=== PATIENT | male | born 1975 | race Caucasian/White ===

== ENCOUNTER 2020-05-08 16:44 | Emergency (ER) | payer BC, SELFPAY ==
[2020-05-08] VITALS (9 sets, daily range): BP systolic 140–177; BP diastolic 68–99; PULSE 87–98; RESP 14–20; TEMP 36.7; O2SAT 94–100; BMI 33.0
--- NOTE | 2020-05-08 17:11 | CTR_ITS ---
PROCEDURE INFORMATION: Exam: CT Abdomen And Pelvis Without Contrast Exam date and time: 05/08/2020 5:14 PM Age: 44 years old Clinical indication: Abdominal pain; Flank; Left; Additional info: Left flank pain. History of kidney stones. Most severe yet TECHNIQUE: Imaging protocol: Computed tomography of the abdomen and pelvis without contrast. Radiation optimization: All CT scans at this facility use at least one of these dose optimization techniques: automated exposure control; mA and/or kV adjustment per patient size (includes targeted exams where dose is matched to clinical indication); or iterative reconstruction. COMPARISON: CT Abdomen/Pelvis Renal [id number] 11/18/2015 5:05 PM RADIATION DOSE METRICS: Total DLP (mGy-cm): 2.46 FINDINGS: Liver: Normal. No mass. Gallbladder and bile ducts: Normal. No calcified stones. No ductal dilation. Pancreas: Normal. No ductal dilation. Spleen: Normal. No splenomegaly. Adrenals: Small benign calcification in the right adrenal gland. The left gland is normal. Kidneys and ureters: 4 mm calculus at the left ureterovesical junction with mild left hydronephrosis and perinephric stranding. Additional tiny inferior left renal calculi. The right kidney is normal. Stomach and bowel: Chronic submucosal fatty deposition in the transverse and descending colon. Mild fecalization of the distal small bowel, likely related to delayed transit. Appendix: The appendix is normal. Intraperitoneal space: Unremarkable. No free air. No significant fluid collection. Vasculature: Unremarkable. No abdominal aortic aneurysm. Lymph nodes: Unremarkable. No enlarged lymph nodes. Urinary bladder: Mild wall thickening in the urinary bladder which is decompressed. Reproductive: Unremarkable as visualized. Bones/joints: Unremarkable. No acute fracture. Soft tissues: Fat containing left inguinal hernia. CT/CT kidney stone [id number] IMPRESSION: 1. 4 mm calculus at the left ureterovesical junction causing mild hydronephrosis. 2. Mild wall thickening of the urinary bladder may relate to decompression. Cystitis or trabeculation is not excluded. Radiation Dose CTDIVOL = (mGy): DLP = 2062.46 (mGy-cm)
--- NOTE | 2020-05-08 17:14 | ED_ITS ---
HPI - Abdominal Pain General: Chief Complaint: Abdominal Pain Stated Complaint: FLANK PAIN Time Seen by Provider: 05/08/20 16:54 Source: patient Mode of arrival: ambulatory Limitations: no limitations History of Present Illness: MD elicited complaint: flank pain Pertinent past history: kidney stones Onset (ago): hour(s) (2) Pain Consistency: constant Location: L flank Severity: severe Quality: stabbing Radiation: none Migration to: no migration Exacerbating factors: nothing Relieving factors: nothing Associated Symptoms: Reports nausea; Denies anorexia, belching, bloating, change in bowel habits, change in stool character, chills, coffee ground emesis, constipation, GI cramping, diarrhea, dyspepsia, dysuria, excessive flatus, fever(s), heartburn, hematochezia, hematuria, hematemesis, fecal incontinence, loose stools, melena, poor appetite, syncope and vomiting Review of Systems General: Reports: 10 or more systems reviewed and unremarkable except in HPI and below Const: Denies: fever(s) or chills Eyes: Denies: change in vision or blurry vision ENMT: Denies: throat pain, enlarged tonsils, odynophagia, hoarseness, mouth pain or swelling of lips/tongue Card: Denies: syncope Resp: Denies: dyspnea, productive cough or non-productive cough GI: Reports: nausea; Denies: vomiting, hematemesis, coffee ground emesis, heartburn, diarrhea, constipation, bloating, GI cramping, belching, excessive flatus, fecal incontinence, change in bowel habits, change in stool character, hematochezia or melena : Denies: dysuria or hematuria Musc: Denies: neck pain, back pain or extremity swelling Skin/Breast: Denies: rash, pruritus or erythema Neuro: Denies: headache(s), numbness in extremities or weakness in extremities Endo: Denies: polyuria, polydipsia or tired all the time PFSH ED PFSH: Social History Smoking and tobacco status: current every day smoker smokeless tobacco Physical Exam Const: COMMON NORMALS: no acute distress, average body habitus, patient oriented x3, no limitations, healthy appearing, alert and well nourished HENMT: COMMON NORMALS: normocephalic, atraumatic and moist oral mucous membranes HEAD & SCALP: normocephalic and atraumatic Neck/C-Spine: COMMON NORMALS: no meningeal signs and no JVD Resp: COMMON NORMALS: normal respiratory effort, No retractions, No use of accessory muscles, clear to auscultation bilaterally and percussion normal AUSCULTATION: clear to auscultation bilaterally PERCUSSION: percussion normal Cardio: COMMON NORMALS: no JVD, regular rate, regular rhythm, S1 normal heart sound present, S2 normal heart sound present, No gallops present (Cardio), No clicks present (Cardio), No murmurs present (Cardio), No rub (Cardio) and Peripheral pulses 2+ throughout RATE: regular rate RHYTHM: regular rhythm HEART SOUNDS: S1 normal heart sound present and S2 normal heart sound present PERIPHERAL PULSES: Peripheral pulses 2+ throughout GI: COMMON NORMALS: Normal to inspection, nondistended, normoactive bowel sounds present, Soft to palpation, non-tender, No hepatosplenomegaly present, no masses and no bruits PALPATION: Yes Soft to palpation and Yes No hepatosplenomegaly present : BLADDER/KIDNEY EXAM: Yes CVA tenderness on the left Back/Pelvis: GENERAL BACK: Yes CVA tenderness Extremity: COMMON NORMALS: normal to inspection, full ROM, capillary refill normal, no calf tenderness and no pedal edema Neuro: COMMON NORMALS: patient oriented x3 SENSORIUM/ORIENTATION: Yes alert MENINGEAL SIGNS: Yes no meningeal signs Skin: COMMON NORMALS: no rashes or lesions noted, no wounds, turgor normal, no jaundice, no petechiae and no mottling GENERAL SKIN EXAM: no rashes or lesions noted and turgor normal Course Reevaluation(s): Reevaluation #1: Discussed his lab and imaging findings with him. Urinalysis is still pending, however other labs are unremarkable. Pain is down to about a 5. He would like some more medicine for pain. Discussed that he CT scan shows he has a 4 mm UV junction stone that is likely to pass. Advised that once I have his urine results back we will have an idea of his disposition. He voiced understanding and is in agreement with the plan Time: 19:00 Reevaluation #2: UA negative. Will discharge him home with a prescription for norco and flomax. He voiced understanding and all questions answered. Time: 20:06 Vital Signs: Vital signs: Vital Signs Temperature 98.1 F 05/08/20 20:30 Pulse Rate 88 05/08/20 20:30 Respiratory Rate 18 05/08/20 20:30 Blood Pressure 161/68 05/08/20 20:30 Pulse Oximetry 98 05/08/20 20:30 MDM - Abdominal Pain MDM Narrative: Medical decision making narrative: Patient who presented to the emergency department with left flank pain. Evaluation in emergency department shows that he has a left UV junction with mild left hydronephrosis. The stone is 4 mm and I believe it will pass. He is discharged home on oral pain medication and Flomax. No urinary tract infection or signs of sepsis Medical Records: Attestation: I reviewed the patient's medical records. Lab Data: Attestation: I reviewed the patient's lab results. Labs: Lab Results 05/08/20 05/08/20 05/08/20 Range/Units 17:10 17:10 17:10 WBC 11.7 H (4.0-10.0) 10^3/ uL RBC 5.44 H (4.1-5.3) 10^6/u L Hgb 15.6 (11.7-16.6) g/dL Hct 47.5 (42.0-52.0) % MCV 87.3 (80-94) fL MCH 28.7 (28.0-34.0) pg MCHC 32.8 (30.0-36.0) g/dL RDW 12.7 (12.1-15.1) % Plt Count 280 (130-400) 10^3/c mm MPV 10.5 H (7.4-10.4) fL Neut % (Auto) 66.9 % Lymph % (Auto) 22.9 % [place] % (Auto) 7.7 % Eos % (Auto) 1.4 % Baso % (Auto) 0.7 % Neut # (Auto) 7.82 H (1.8-7.7) 10^3/u L Lymph # (Auto) 2.7 (0.8-4.8) 10^3/u L [place] # (Auto) 0.9 (0.2-0.9) 10^3/u L Eos # (Auto) 0.2 (0.0-0.8) 10^3/u L Baso # (Auto) 0.1 (0.0-0.1) 10^3/u L Nucleated RBC % (a uto) 0 % Nucleated RBCs # 0.0 /100WBC Sodium 139 (136-145) mmol/L Potassium 4.1 (3.5-5.1) mmol/L Chloride 101 (98-107) mmol/L Carbon Dioxide 25 (22-29) mmol/L Anion Gap 17.1 (5-19) BUN 15 (6-20) mg/dL Creatinine 1.2 (0.7-1.2) mg/dL GFR Calculation 66.4 L (90-130) mL/min Glucose 118 H (65-115) mg/dL Calculated Osmolal ity 290 (285-295) mOsm/k g Lactate 1.6 (0.5-2.2) mmol/L Calcium 10.0 (8.5-10.5) mg/dL Total Bilirubin 0.3 (0.15-1.2) mg/dL AST 25 (0-40) U/L ALT 44 H (0-41) U/L Alkaline Phosphata se 102 (40-130) IU/L Total Protein 7.4 (6.6-8.7) g/dL Albumin 4.5 (3.5-5.2) g/dL Globulin 2.9 (1.3-4.6) g/dL Lipase 28 (13-60) U/L Urine Color (Yellow) Urine Appearance (CLEAR) Urine pH (5-7) Ur Specific Gravit y (1.005-1.030) Urine Protein (Negative) Urine Glucose (UA) (Normal) Urine Ketones (Negative) Urine Blood (Negative) Urine Nitrate (Negative) Urine Bilirubin (Negative) Prot Sulfosalicyli c Acd (Negative) Urine Urobilinogen (Negative) mg/dL Ur Leukocyte Araceli ase (Negative) Urine RBC (0-2) /hpf Urine WBC (0-5) /hpf Ur Squamous Epith Cells (0-5) /hpf Amorphous Sediment Urine Bacteria (NONE) /hpf 05/08/ Range/Units 19:14 WBC (4.0-10.0) 10^3/ uL RBC (4.1-5.3) 10^6/u L Hgb (11.7-16.6) g/dL Hct (42.0-52.0) % MCV (80-94) fL MCH (28.0-34.0) pg MCHC (30.0-36.0) g/dL RDW (12.1-15.1) % Plt Count (130-400) 10^3/c mm MPV (7.4-10.4) fL Neut % (Auto) % Lymph % (Auto) % [place] % (Auto) % Eos % (Auto) % Baso % (Auto) % Neut # (Auto) (1.8-7.7) 10^3/u L Lymph # (Auto) (0.8-4.8) 10^3/u L [place] # (Auto) (0.2-0.9) 10^3/u L Eos # (Auto) (0.0-0.8) 10^3/u L Baso # (Auto) (0.0-0.1) 10^3/u L Nucleated RBC % (a uto) % Nucleated RBCs # /100WBC Sodium (136-145) mmol/L Potassium (3.5-5.1) mmol/L Chloride (98-107) mmol/L Carbon Dioxide (22-29) mmol/L Anion Gap (5-19) BUN (6-20) mg/dL Creatinine (0.7-1.2) mg/dL GFR Calculation (90-130) mL/min Glucose (65-115) mg/dL Calculated Osmolal ity (285-295) mOsm/k g Lactate (0.5-2.2) mmol/L Calcium (8.5-10.5) mg/dL Total Bilirubin (0.15-1.2) mg/dL AST (0-40) U/L ALT (0-41) U/L Alkaline Phosphata se (40-130) IU/L Total Protein (6.6-8.7) g/dL Albumin (3.5-5.2) g/dL Globulin (1.3-4.6) g/dL Lipase (13-60) U/L Urine Color Yellow (Yellow) Urine Appearance Hazy A (CLEAR) Urine pH 8 H (5-7) Ur Specific Gravit y 1.015 (1.005-1.030) Urine Protein Neg (Negative) Urine Glucose (UA) Norm (Normal) Urine Ketones Negative (Negative) Urine Blood 3+ H (Negative) Urine Nitrate Negative (Negative) Urine Bilirubin Neg (Negative) Prot Sulfosalicyli c Acd Negative (Negative) Urine Urobilinogen 1 H (Negative) mg/dL Ur Leukocyte Araceli ase Negative (Negative) Urine RBC 15-25 H (0-2) /hpf Urine WBC 5-10 H (0-5) /hpf Ur Squamous Epith Cells None (0-5) /hpf Amorphous Sediment Not Reportable Urine Bacteria 1+ H (NONE) /hpf Imaging Data ^: CT Abd/Pel: Attestation: I personally reviewed and interpreted this imaging study as follows: Radiologist's impression: [place] [address] CT Scan Report Signed Patient: Miguel Sawyer #: [id number] : 1975Acct#:[id number] Age/Sex: 44 / MADM Date: 05/08/20 Loc: ERRoom/Bed: Attending Dr: Ordering Provider/Ordering MD: Tyesha Garcia MD, [facility] [place] Date of Service: 05/08/20 Procedure(s): CT kidney stone [id number] Accession Number(s): [id number] Report Number: [id number] PROCEDURE INFORMATION: Exam: CT Abdomen And Pelvis Without Contrast Exam date and time: 05/08/2020 5:14 PM Age: 44 years old Clinical indication: Abdominal pain; Flank; Left; Additional info: Left flank pain. History of kidney stones. Most severe yet TECHNIQUE: Imaging protocol: Computed tomography of the abdomen and pelvis without contrast. Radiation optimization: All CT scans at this facility use at least one of these dose optimization techniques: automated exposure control; mA and/or kV adjustment per patient size (includes targeted exams where dose is matched to clinical indication); or iterative reconstruction. COMPARISON: CT Abdomen/Pelvis Renal [id number] 11/18/2015 5:05 PM RADIATION DOSE METRICS: Total DLP (mGy-cm): 2061.46 FINDINGS: Liver: Normal. No mass. Gallbladder and bile ducts: Normal. No calcified stones. No ductal dilation. Pancreas: Normal. No ductal dilation. Spleen: Normal. No splenomegaly. Adrenals: Small benign calcification in the right adrenal gland. The left gland is normal. Kidneys and ureters: 4 mm calculus at the left ureterovesical junction with mild left hydronephrosis and perinephric stranding. Additional tiny inferior left renal calculi. The right kidney is normal. Stomach and bowel: Chronic submucosal fatty deposition in the transverse and descending colon. Mild fecalization of the distal small bowel, likely related to delayed transit. Appendix: The appendix is normal. Intraperitoneal space: Unremarkable. No free air. No significant fluid collection. Vasculature: Unremarkable. No abdominal aortic aneurysm. Lymph nodes: Unremarkable. No enlarged lymph nodes. Urinary bladder: Mild wall thickening in the urinary bladder which is decompressed. Reproductive: Unremarkable as visualized. Bones/joints: Unremarkable. No acute fracture. Soft tissues: Fat containing left inguinal hernia. CT/CT kidney stone [id number] IMPRESSION: 1. 4 mm calculus at the left ureterovesical junction causing mild hydronephrosis. 2. Mild wall thickening of the urinary bladder may relate to decompression. Cystitis or trabeculation is not excluded. Radiation Dose CTDIVOL = (mGy): DLP = 2062.46 (mGy-cm) Dictated By:Ghanshyam Bocanegra Signed By:Ghanshyam BocanegraSigned Date/Time:05/08/201755 DD/ 53 Discharge Plan Discharge Patient Disposition: Home Clinical Impression: Calculus of ureterovesical junction (UVJ) Condition: Stable Prescriptions: [place] 5-325 mg tablet 1 tab PO Q8H PRN (Reason: kdney stone) Qty: 20 RF: 0 Flomax 0.4 mg capsule 0.4 mg PO DAILY Qty: 30 RF: 0 Continued Ciprodex 0.3-0.1 % drops,suspension 4 drop EAR-BOTH Q12H 7 Days Qty: 7.5 RF: 0 Discharge Orders: Discharge Order (Routine); Ordered 05/08/20 Ordered By: Tyesha Garcia Referrals: Saul Hansen MD [Family Provider] - 1-3 days Discharge Diet: Usual diet Discharge Activity: Resume usual activity Patient Instructions: Kidney Stones (ED) Activity Restrictions/Additional Instructions: Return for any new or worsening symptoms. Follow-up with your primary care provider within 3 days. Take the medications as prescribed. Drink plenty of water to keep hydrated. Discharge Date/Time: 05/08/20 20:33 Coding Level of Care Code ED Linux System Admin for Chg Fwd Exam Comprehensive
[2020-05-08] MEDS: sodium chloride 0.9% 1,000 ML 999 ML IV (17:18)
[2020-05-08] MEDS: ondansetron 2 mg/ML SDV 2 mL 4 MG IVP (17:21)
[2020-05-08] MEDS: ketorolac 30 mg/mL INJ IVP (17:21)
[2020-05-08 17:30] LABS: Basophils # 0.1 10^3/uL (0.0-0.1); Basophils % 0.7 %; Eosinophils # 0.2 10^3/uL (0.0-0.8); Eosinophils % 1.4 %; Hematocrit 47.5 % (42.0-52.0); Hemoglobin 15.6 g/dL (11.7-16.6); Lymphocytes # 2.7 10^3/uL (0.8-4.8); Lymphocytes % 22.9 %; Mean Corpuscular HGB Conc 32.8 g/dL (30.0-36.0); Mean Corpuscular Hemoglobin 28.7 pg (28.0-34.0); Mean Corpuscular Volume 87.3 fL (80-94); Mean Platelet Volume 10.5 fL (7.4-10.4); Monocytes # 0.9 10^3/uL (0.2-0.9); Monocytes % 7.7 %; Neutrophils # 7.82 10^3/uL (1.8-7.7); Neutrophils % 66.9 %; Nucleated Red Blood Cells % 0 %; Platelet Count 280 10^3/cmm (130-400); Red Blood Count 5.44 10^6/uL (4.1-5.3); Red Cell Distribution Width 12.7 % (12.1-15.1); White Blood Count 11.7 10^3/uL (4.0-10.0)
[2020-05-08 18:06] LABS: Lactate (Lactic Acid level) 1.6 mmol/L (0.5-2.2)
[2020-05-08 18:07] LABS: Alanine Aminotransferase 44 U/L (0-41); Albumin Level 4.5 g/dL (3.5-5.2); Alkaline Phosphatase 102 IU/L (40-130); Anion Gap 17.1 (5-19); Aspartate Amino Transferase 25 U/L (0-40); Blood Urea Nitrogen 15 mg/dL (6-20); Carbon Dioxide 25 mmol/L (22-29); Chloride 101 mmol/L (98-107); Globulin 2.9 g/dL (1.3-4.6); Glomerular Filtration Rate 66.4 mL/min (90-130); Glucose 118 mg/dL (65-115); Lipase 28 U/L (13-60); Osmolality Calculated 290 mOsm/kg (285-295); Potassium 4.1 mmol/L (3.5-5.1); Sodium 139 mmol/L (136-145); Total Bilirubin 0.3 mg/dL (0.15-1.2); Total Protein 7.4 g/dL (6.6-8.7)
[2020-05-08] MEDS: morphine 4 mg/mL SDV 1 mL IVP (19:12)
[2020-05-08 19:57] LABS: Add Urine Microscopic? YES; Bilirubin Urine Neg (Negative); Blood Urine 3+ (Negative); Glucose Urine UA Norm (Normal); Ketones Urine Negative (Negative); Leukocyte Esterase Urine Negative (Negative); Nitrate Urine Negative (Negative); Protein Urine Neg (Negative); Specific Gravity, Urine 1.015 (1.005-1.030); Sulfosalicylic Acid Urine Negative (Negative); Urine Appearance Hazy (CLEAR); Urine Color Yellow (Yellow); Urobilinogen Urine 1 mg/dL (Negative); pH Urine 8 (5-7)
[2020-05-08 20:08] LABS: RBC Urine 15-25 /hpf (0-2)
[2020-05-08 20:09] LABS: Add Urine Culture? Yes; Bacteria Urine 1+ /hpf
[2020-05-08] MEDS: HYDROcodone-acetaminophen 5-325 mg Tablet 1 TAB PO (20:27)
== END 2020-05-08 20:33 | disposition home or self-care (01) ==
PROVIDERS: Emergency Provider Family Medicine
DX: N20.1 Calculus of ureter (principal); F17.220 Nicotine dependence, chewing tobacco, uncomplicated
CPT/HCPCS: 12345; 74176; 80053; 81001; 83605; 83690; 85025; 87086; 96361; 96374; 96375; 99283; J1885; J2270; J2405; J7030

== ENCOUNTER 2021-06-16 22:59 | Emergency (ER) | payer BC, SELFPAY ==
[2021-06-16 23:09] VITALS: BP 159/90; PULSE 83; RESP 18; TEMP 36.3; O2SAT 99; BMI 32.3
--- NOTE | 2021-06-16 23:58 | ED_ITS ---
HPI - Abdominal Pain General: Chief Complaint: Abdominal Pain Stated Complaint: Left side Pain Time Seen by Provider: 06/16/21 23:00 Source: patient Mode of arrival: ambulatory Limitations: no limitations History of Present Illness: HPI narrative: 45-year-old male states that at 9 PM he started having sharp left lower quadrant abdominal pain states pain is 7 out of 10 and is very sharp in nature. He states much worse with movement or palpation improved with rest. States has had kidney stones in the past but this is not the same. He denies any dysuria denies any hematuria denies any vomiting or diarrhea. Associated Symptoms: Denies chills, dysuria and fever(s) Review of Systems Const: Denies: fever(s), chills, body aches or change in appetite Eyes: Denies: blurry vision or eye discomfort ENMT: Denies: throat pain or dental pain Card: Denies: chest pain Resp: Denies: dyspnea GI: Reports: abdominal pain : Denies: dysuria Musc: Denies: neck pain or back pain Skin/Breast: Denies: rash Neuro: Denies: headache(s) Psych: Denies: depression Alexandru/Lymph: Denies: easy bruising All/Imm: Denies: urticaria PFSH ED PFSH: Social History Smoking and tobacco status: current every day smoker smokeless tobacco Physical Exam Const: COMMON NORMALS: no acute distress, patient oriented x3 and healthy appearing HENMT: COMMON NORMALS: normocephalic and atraumatic HEAD & SCALP: normocephalic and atraumatic Eye: COMMON NORMALS: Equal, round and reactive pupils present and EOMs intact bilaterally PUPIL: Yes Equal, round and reactive pupils present Neck/C-Spine: COMMON NORMALS: full ROM and supple Chest: COMMONS NORMALS: normal inspection of the chest and normal palpation of entire chest wall Resp: COMMON NORMALS: normal respiratory effort, No retractions, No use of accessory muscles and clear to auscultation bilaterally AUSCULTATION: clear to auscultation bilaterally Cardio: COMMON NORMALS: regular rate, regular rhythm and No murmurs present (Cardio) RATE: regular rate RHYTHM: regular rhythm GI: COMMON NORMALS: Normal to inspection, nondistended, normoactive bowel sounds present, Soft to palpation and no masses PALPATION: Yes Soft to palpation and Yes Tenderness to palpation present (GI) Details: LLQ Extremity: COMMON NORMALS: normal to inspection and full ROM Neuro: COMMON NORMALS: patient oriented x3, moves all extremities and no focal motor deficits Psych: COMMON NORMALS: mental status grossly normal, Normal thought process present and cooperative THOUGHT PROCESS: Normal thought process present Skin: COMMON NORMALS: no rashes or lesions noted and no wounds GENERAL SKIN EXAM: no rashes or lesions noted Course Vital Signs: Vital signs: Vital Signs Temperature 97.4 F L 06/16/21 23:09 Pulse Rate 83 06/16/21 23:09 Respiratory Rate 18 06/16/21 23:09 Blood Pressure 159/90 06/16/21 23:09 Pulse Oximetry 99 06/16/21 23:09 MDM - Abdominal Pain MDM Narrative: Medical decision making narrative: 45-year-old presents here with abdominal pain patient's blood work and CAT scan here are all normal. He has no signs of acute surgical abdomen his pain here is improved no signs of infection urinary tract infection or kidney stone will place him on pain meds he is to follow-up his PCP and return if worsening. Lab Data: Labs: Lab Results 06/16/21 06/16/21 06/17/21 00:15 00:15 00:54 WBC 12.2 10^3/uL H 10 ^3/uL (4.0-10.0) RBC 5.38 10^6/uL H 10 ^6/uL (4.1-5.3) Hgb 16.0 g/dL g/dL (11.7-16.6) Hct 46.2 % % (42.0-52.0) MCV 85.9 fl fl (80-94) MCH 29.7 pg pg (28.0-34.0) MCHC 34.6 g/dL g/dL (30.0-36.0) RDW 12.7 % % (12.1-15.1) Plt Count 267 10^3/cmm 10^3 /cmm (130-400) MPV 10.2 fL fL (7.4-10.4) Neut % (Auto) 66.9 % % Lymph % (Auto) 22.6 % % [place] % (Auto) 6.9 % % Eos % (Auto) 2.5 % % Baso % (Auto) 0.7 % % Neut # (Auto) 8.17 10^3/uL H 10 ^3/uL (1.8-7.7) Lymph # (Auto) 2.8 10^3/uL 10^3/ uL (0.8-4.8) [place] # (Auto) 0.8 10^3/uL 10^3/ uL (0.2-0.9) Eos # (Auto) 0.3 10^3/uL 10^3/ uL (0.0-0.8) Baso # (Auto) 0.1 10^3/uL 10^3/ uL (0.0-0.1) Nucleated RBC % (a uto) 0 % % Nucleated RBCs # 0.0 /100WBC /100W BC Sodium 136 mmol/L mmol/L (136-145) Potassium 3.9 mmol/L mmol/L (3.5-5.1) Chloride 100 mmol/L mmol/L (98-107) Carbon Dioxide 23 mmol/L mmol/L (22-29) Anion Gap 16.9 (5-19) BUN 11 mg/dL mg/dL (6-20) Creatinine 1.0 mg/dL mg/dL (0.7-1.2) GFR Calculation 81.6 mL/min L mL/ min (90-130) Glucose 93 mg/dL mg/dL (65-115) Calculated Osmolal ity 281 mOsm/kg L mOs m/kg (285-295) Calcium 9.0 mg/dL mg/dL (8.5-10.5) Total Bilirubin 0.2 mg/dL mg/dL (0.15-1.2) AST 22 U/L U/L (0-40) ALT 41 U/L U/L (0-41) Alkaline Phosphata se 87 IU/L IU/L (40-130) Total Protein 7.2 g/dL g/dL (6.6-8.7) Albumin 4.4 g/dL g/dL (3.5-5.2) Globulin 2.8 g/dL g/dL (1.3-4.6) Lipase 30 U/L U/L (13-60) Urine Color Straw (Yellow) Urine Appearance Clear (CLEAR) Urine pH 7 (5-7) Ur Specific Gravit y 1.005 (1.005-1.030) Urine Protein Neg (Negative) Urine Glucose (UA) Norm (Normal) Urine Ketones Negative (Negative) Urine Blood Neg (Negative) Urine Nitrate Negative (Negative) Urine Bilirubin Neg (Negative) Urine Urobilinogen Neg mg/dL mg/dL (Negative) Ur Leukocyte Araceli ase Negative (Negative) Imaging Data ^: CT Abd/Pel: Attestation: I personally reviewed and interpreted this imaging study as follows: Radiologist's impression: [facility] [address] [address] [address] Scan Report Signed Patient: Miguel Sawyer Unit #: [id number] : 1975 Age/Sex: 45 / M ADM Date: 06/16/21 Loc: ER Room/Bed: Attending Dr: Ordering Provider/Ordering MD: Zayra Duff MD Date of Service: 06/16/21 Procedure(s): CT abdomen pelvis w con* [id number] Accession Number(s): [id number] Report Number: [id number] PROCEDURE INFORMATION: Exam: CT Abdomen And Pelvis With Contrast Exam date and time: 06/16/2021 11:56 PM Age: 45 years old Clinical indication: Abdominal pain; Localized; Left lower quadrant (llq); Patient HX: Llq pain; Additional info: Abd pain TECHNIQUE: Imaging protocol: Computed tomography of the abdomen and pelvis with contrast. Radiation optimization: All CT scans at this facility use at least one of these dose optimization techniques: automated exposure control; mA and/or kV adjustment per patient size (includes targeted exams where dose is matched to clinical indication); or iterative reconstruction. Contrast material: OMNI 300; Contrast volume: 95 ml; Contrast route: INTRAVENOUS (IV); COMPARISON: CT kidney stone [id number] 05/08/2020 5:34 PM RADIATION DOSE METRICS: Total DLP (mGy-cm): 1871.79 FINDINGS: Lungs: There is a noncalcified pulmonary nodule in the left lower lobe visible on axial series 2, image 7 measuring 4 mm. This is unchanged since the prior chest CT. No further follow-up is necessary. Liver: The liver is normal. Gallbladder and bile ducts: The gallbladder is normal. There is no biliary dilation. Pancreas: The pancreas is unremarkable. Spleen: The spleen is mildly enlarged. Adrenal glands: Normal. No mass. Kidneys and ureters: The right kidney and ureter are unremarkable. There is a nonobstructive stone in the left kidney. There is no hydronephrosis or ureteral dilation on the left. Stomach and bowel: The stomach is decompressed, preventing meaningful evaluation of wall thickness. The small bowel is nondilated. The colon is unremarkable. Appendix: The appendix is normal. Intraperitoneal space: There is no free air or significant intraperitoneal free fluid. Vasculature: The aorta is unremarkable. There is no aneurysm. The portal, splenic and superior mesenteric veins are patent. Lymph nodes: There is no lymphadenopathy in the retroperitoneum, mesentery, pelvis or inguinal regions. Urinary bladder: The urinary bladder is unremarkable. Reproductive: The prostate and seminal vesicles are unremarkable. Bones/joints: Bones are unremarkable. Soft tissues: The abdominal wall is intact. CT/CT abdomen pelvis w con* [id number] IMPRESSION: 1. No acute findings. 2. Incidental findings above. Radiation Dose CTDIVOL = (mGy): DLP = 1871.79 (mGy-cm) Dictated By: Pawel Bess MD Signed By: Pawel Bess MD Signed Date/Time: 06/17/21 0139 DD/ [id number] Discharge Plan Discharge Patient Disposition: Home Clinical Impression: Abdominal pain Qualifiers: Abdominal location: generalized Qualified Code(s): R10.84 - Generalized abdominal pain Condition: Stable Prescriptions: New hydrocodone-acetaminophen 5-325 mg tablet 1 tab PO Q6H PRN (Reason: pain) Qty: 14 RF: 0 ondansetron 4 mg tablet,disintegrating 4 mg PO Q6H PRN (Reason: nausea and vomiting) Qty: 14 RF: 0 No Action Ciprodex 0.3-0.1 % drops,suspension 4 drop EAR-BOTH Q12H 7 Days Qty: 7.5 RF: 0 [place] 5-325 mg tablet 1 tab PO Q8H PRN (Reason: kdney stone) Qty: 20 RF: 0 Flomax 0.4 mg capsule 0.4 mg PO DAILY Qty: 30 RF: 0 Discharge Orders: Discharge ED (Routine); Ordered 06/17/21 Ordered By: Korby Omega Discharge Diet: Advance as tolerated Discharge Activity: Resume usual activity Patient Instructions: Abdominal Pain (ED), Opioid Safety Coding Level of Care Code ED Senior Manager Quality Assurance for Chg Fwd Exam Comprehensive
[2021-06-17] MEDS: sodium chloride 0.9% 1,000 ML 999 ML IV (00:23)
[2021-06-17] MEDS: morphine 4 mg/mL SDV 1 mL IVP (00:23)
[2021-06-17] MEDS: ondansetron 2 mg/ML SDV 2 mL 4 MG IVP (00:23)
[2021-06-17] MEDS: iohexol 300 mg/mL 100 mL Btl IV (00:27)
[2021-06-17 00:30] LABS: Basophils # 0.1 10^3/uL (0.0-0.1); Basophils % 0.7 %; Eosinophils # 0.3 10^3/uL (0.0-0.8); Eosinophils % 2.5 %; Hematocrit 46.2 % (42.0-52.0); Lymphocytes # 2.8 10^3/uL (0.8-4.8); Lymphocytes % 22.6 %; Mean Corpuscular HGB Conc 34.6 g/dL (30.0-36.0); Mean Corpuscular Hemoglobin 29.7 pg (28.0-34.0); Mean Corpuscular Volume 85.9 fl (80-94); Mean Platelet Volume 10.2 fL (7.4-10.4); Monocytes # 0.8 10^3/uL (0.2-0.9); Monocytes % 6.9 %; Neutrophils # 8.17 10^3/uL (1.8-7.7); Neutrophils % 66.9 %; Nucleated Red Blood Cells % 0 %; Platelet Count 267 10^3/cmm (130-400); Red Blood Count 5.38 10^6/uL (4.1-5.3); Red Cell Distribution Width 12.7 % (12.1-15.1); White Blood Count 12.2 10^3/uL (4.0-10.0)
[2021-06-17 00:54] LABS: Alanine Aminotransferase 41 U/L (0-41); Albumin Level 4.4 g/dL (3.5-5.2); Alkaline Phosphatase 87 IU/L (40-130); Anion Gap 16.9 (5-19); Aspartate Amino Transferase 22 U/L (0-40); Blood Urea Nitrogen 11 mg/dL (6-20); Carbon Dioxide 23 mmol/L (22-29); Chloride 100 mmol/L (98-107); Globulin 2.8 g/dL (1.3-4.6); Glomerular Filtration Rate 81.6 mL/min (90-130); Glucose 93 mg/dL (65-115); Lipase 30 U/L (13-60); Osmolality Calculated 281 mOsm/kg (285-295); Potassium 3.9 mmol/L (3.5-5.1); Sodium 136 mmol/L (136-145); Total Bilirubin 0.2 mg/dL (0.15-1.2); Total Protein 7.2 g/dL (6.6-8.7)
[2021-06-17 01:04] LABS: Add Urine Microscopic? NO; Charge for UA Resulting for Rev
[2021-06-17 01:10] LABS: Bilirubin Urine Neg (Negative); Blood Urine Neg (Negative); Glucose Urine UA Norm (Normal); Ketones Urine Negative (Negative); Leukocyte Esterase Urine Negative (Negative); Nitrate Urine Negative (Negative); Protein Urine Neg (Negative); Specific Gravity, Urine 1.005 (1.005-1.030); Urine Appearance Clear (CLEAR); Urine Color Straw (Yellow); Urobilinogen Urine Neg (Negative); pH Urine 7 (5-7)
[2021-06-17 02:38] VITALS: BP 142/86; PULSE 81; RESP 18; O2SAT 99
== END 2021-06-17 02:40 | disposition home or self-care (01) ==
PROVIDERS: Emergency Provider Emergency Medicine
DX: R10.84 Generalized abdominal pain (principal); F17.210 Nicotine dependence, cigarettes, uncomplicated
CPT/HCPCS: 74177; 80053; 81003; 83690; 85025; 96361; 96374; 96375; 99284; J2270; J2405; J7030; Q9967

== ENCOUNTER → 2021-07-28 13:07 | Outpatient (BNVA) | payer BC, SELFPAY | PROVIDERS: Visit Provider Nurse Practitioner Family | DX: Z20.822 Contact with and (suspected) exposure to COVID-19 (principal) | CPT/HCPCS: 87635 ==

== ENCOUNTER → 2022-05-03 12:51 | Outpatient (BNVA) | payer BC, SELFPAY | PROVIDERS: Visit Provider Registered Nurse Neonatal Intensive Care | DX: J02.9 Acute pharyngitis, unspecified (principal) | CPT/HCPCS: 87880 ==